=== PATIENT | female | born 1960 | race Caucasian/White ===

== ENCOUNTER 2023-10-23 09:38 | Emergency (ER) | payer OTHER, SELFPAY ==
--- NOTE | ~2023-10-23 | XR_ITS ---
EXAMINATION: XR lumbar spine 2-3V DATE: 10/23/2023 10:57 INDICATION: Low back pain TECHNIQUE: Anteroposterior and lateral views of the lumbar spine, and cone-down lateral view of the l umbosacral junction were obtained. COMPARISON: None. FINDINGS: Bone alignment is normal. There is no fracture. The vertebral body heights are maintained. There is mild loss of intervertebral disc space height throughout the lumbar spine. There is moderate facet joint osteoarthritis at L4-5 and L5-S1. Calcified uterine fibroids are noted. IMPRESSION: 1. Mild lumbar spondylosis without acute findings. Reviewed, dictated and finalized at location A. [employer]
[2023-10-23 09:55] VITALS: BP 157/84; PULSE 99; RESP 16; TEMP 37.2; O2SAT 100
--- NOTE | 2023-10-23 10:38 | ED.GENADULT ---
HPI - General Adult General Chief complaint: Back Pain/Injury Stated complaint: Back Pain Source: patient Mode of arrival: ambulatory Limitations: no limitations History of Present Illness HPI narrative: Patient presents for evaluation of low back pain. She indicates a few months ago she is having difficulty putting on shoe-protectors at work. She was experiencing pain and decreased ROM in the right hip. Her PCP ordered x rays of her right hip and knee which showed arthritis. She was referred to PT and she has been participating in as directed. She has increased ROM in the right hip. Two weeks ago she was attempting to clean the bottom of her shoes at work and experienced pain in the low back which radiated down the RLE. She states pain in the low back is a dull aching sensation varying between 4-6/10 in severity. Last night she was wiping herself after using the restroom and felt a significant increase in pain in low back down RLE. She states it was sharp and shooting. Pain made mobility challenging and the higher severity in pain lasted for about two hours. She had another such episode today after wiping herself when toileting. She denies any saddle anesthesia, bladder/bowel incontinence. Related Data Home Medications Medication Instructions Recorded Confirmed fluticasone propionate 50 2 spray intranasal DAILY 10/23/23 10/23/23 mcg/actuation nasal spray,suspension montelukast 10 mg tablet 10 mg PO DAILY 10/23/23 10/23/23 Allergies Allergy/AdvReac Type Severity Reaction Status Date / Time Sulfa (Sulfonamide Allergy Rash Verified 10/23/23 10:12 Antibiotics) Review of Systems Review of Systems: CONSTITUTIONAL: Denies fever, chills, or sweats. EYES: Denies visual changes, redness, or discharge. ENT: Denies rhinorrhea, congestion, sore throat, or otalgia. CARDIOVASCULAR: Denies chest pain, palpitations, or edema. RESPIRATORY: Denies cough or dyspnea. GASTROINTESTINAL: Denies abdominal pain, nausea, vomiting, or diarrhea. GENITOURINARY: Denies dysuria or hematuria. SKIN: Denies rash or itching. MUSCULOSKELETAL: Reports low back pain with radiation down RLE. NEUROLOGIC: Denies headache, numbness, dizziness, or weakness. PSYCHIATRIC: Denies anxiety or depression. [facility] Past Medical History Medical History Environmental allergies Surgical History Surgical History No pertinent past surgical history Family History Family History Mother Family history non-contributory Social History Social History Substance use: never Living arrangements: with family Additional occupation/education comments: pharmacy resident Gender identity (if verbalized by the patient): Female Sexual Orientation (if Verbalized by the Patient): Straight or Heterosexual Spiritual care concerns: No Exam Narrative: GENERAL: Well-appearing, well-nourished, and in no acute distress. HEAD: Normocephalic, atraumatic. EYES: PERRLA and EOMI. ENT: Nares clear, no rhinorrhea or epistaxis. Mucous membranes moist. Oropharynx without tonsillar hypertrophy exudate or other lesions. Bilateral TMs pearly metzger nonbulging NECK: Supple. No adenopathy or masses. No carotid bruits or JVD CHEST: Clear to auscultation. No respiratory distress. No wheezes rales or rhonchi HEART: Regular rate and rhythm. No murmur heard. Normal peripheral pulses. ABDOMEN: Soft, nontender, nondistended, normal active bowel sounds. EXTREMITIES: Normal range of motion. No edema. BACK: No tenderness in midline or paraspinous muscles of lumbar spine. Negative straight leg raise SKIN: Warm, dry, no rash. NEURO: No focal deficits. Alert and oriented x3. PSYCH: Normal mood and affect. Course Course
[2023-10-23] MEDS: KETOROLAC (*BKC) 60 MG/2 ML VIAL IM (11:16)
== END 2023-10-23 12:15 | disposition home or self-care (01) ==
PROVIDERS: Emergency Provider Nurse Practitioner; PCP Family Medicine
DX: M54.31 Sciatica, right side (principal)
CPT/HCPCS: 72100; 96372; 99213; G0463; J1885